=== PATIENT | male | born 1950 | race Caucasian/White ===

== ENCOUNTER → 2018-03-19 | Outpatient (CLI) | payer OTHER ==
--- NOTE | 2018-03-21 07:16 | RADIOLOGY REPORT (SQ) ---
EXAM DESCRIPTION: MRI LUMBAR SPINE WITHOUT COMPLETED DATE/TIME: 03/19/2018 11:21 am REASON FOR STUDY: LOW BACK PAIN M54.5 LOW BACK PAIN COMPARISON: None. TECHNIQUE: Sagittal and Axial imaging includes T1, T2, STIR and gradient echo sequences. Coronal T2/ HASTE imaging. LIMITATIONS: None. FINDINGS: VISUALIZED UPPER ABDOMEN: Limited evaluation. No acute or suspicious findings suggested. SEGMENTATION: No transitional anatomy. The lowest well-developed disc space is labeled L5-S1. ALIGNMENT: Degenerative anterolisthesis of L4 on L5. VERTEBRAE: Intact. BONE MARROW: Reactive endplate changes L2-3, L3-4, L4-5, L5-S1. DISC SIGNAL: Loss of height and T2 signal L2-3, L3-4, L4-5. POSTERIOR ELEMENTS: Generally intact. No pars defect evident. HARDWARE: None in the spine. CORD AND CONUS: Normal in size and signal intensity. Conus at the appropriate level. SOFT TISSUES: No aortic aneurysm seen. No bulky retroperitoneal adenopathy or mass. No paraspinal mas s or fluid. L1-L2: No significant spinal stenosis or exit foraminal stenosis. L2-L3: With lateral bulges right greater than left. Mild facet arthritis. Mild narrowing of the exi t foramina right greater than left. L3-L4: Generalized degenerative disc with broad-based bulge. Facet and ligamentous hypertrophy with mild lateral recess narrowing. Moderate narrowing of the exit foramina and mild central canal stenos is. L4-L5: Generalized degenerative disc with diffuse bulge. Facet and ligamentous hypertrophy with late ral recess marked narrowing. Moderate narrowing of the exit foramina and marked central canal stenos is. L5-S1: Generalized degenerative disc with broad-based bulge. Moderate narrowing of the exit foramina . LOWER THORACIC: Incompletely imaged. No stenosis seen. SACRUM: Visualized upper sacrum intact. OTHER: No other significant findings. IMPRESSION: Generalized spondylosis. Most marked changes are at L4-5 with there is degenerative ant erolisthesis, degenerative disc, facet ligamentous hypertrophy resulting in marked central canal sten osis and moderate narrowing of the exit foramina. TECHNICAL DOCUMENTATION: JOB ID: [id number] [employer] All Rights Reserved Reading location - IP/workstation name: [email or web address]
== END ==
LOC: RAD 09:07
PROVIDERS: ATTEND Family Medicine
DX: M54.5 Low back pain (principal); M51.37 Other intervertebral disc degeneration, lumbosacral region; M47.896 Other spondylosis, lumbar region
CPT/HCPCS: 72148